=== PATIENT | male | born 1945 | race Caucasian/White ===

== ENCOUNTER 2019-04-09 07:03 | Outpatient (CLI) | payer MEDICARE, BC ==
[2019-04-09 10:24] LABS: ALBUMIN 4.3 g/dL (3.2-5.5); ALBUMIN/GLOBULIN RATIO 1.6 (1.0-2.2); ALKALINE PHOSPHATASE 54 IU/L (42-121); ALT ALANINE AMINOTRANSFERASE 24 IU/L (10-60); AST ASPARTATE AMINOTRANSFERASE 24 IU/L (10-42); BILIRUBIN,TOTAL 1.1 mg/dL (0.2-1.0); BUN - BLOOD UREA NITROGEN 18 mg/dL (6-20); CALCIUM 9.7 mg/dL (8.5-10.3); CARBON DIOXIDE - CO2 26 mmol/L (21-32); CHLORIDE 105 mmol/L (101-111); CHOL/HDL RATIO 2.6 (<5.0); CHOLESTEROL 162 mg/dL; CREATININE 0.7 mg/dL (0.6-1.2); GFR - MDRD 111 (>89); GLUCOSE 105 mg/dL (70-100); HDL CHOLESTEROL 62 mg/dL; LDL CHOLESTEROL,CALCULATED 89 mg/dL; LDL/HDL RATIO 1.4 (<3.6); SODIUM 143 mmol/L (135-145); VLDL CHOLESTEROL 11 mg/dL
== END 2019-04-09 07:04 | disposition home or self-care (01) ==
LOC: LAB.S 07:03
PROVIDERS: ATTEND Internal Medicine
DX: E78.5 Hyperlipidemia, unspecified (principal); N40.1 Benign prostatic hyperplasia with lower urinary tract symptoms
CPT/HCPCS: 36415; 80053; 80061; 83721; 84153

== ENCOUNTER 2020-02-08 09:21 | Outpatient (CLI) | payer MEDICARE, BC ==
--- NOTE | 2020-02-08 10:07 | SLEEP CARE CONSULTATION ---
Information from patient questionnaire entered by Shanelle Hawkins. I have reviewed and concur with the information entered by Shanelle Hawkins. This document represents the service I personally performed and the decisions made by me, Sea Al MD, [facility]. History of Present Illness Service Date and Time: 02/08/2020920 Reason for Visit: New patient, Previously diagnosed sleep apnea (moderate AHI - 21.6), sleep apnea on CPAP therapy Chief Complaint: reports: Other (compliance) Duration of Symptoms: 2 years Usual bedtime: 9 pm Time it takes to fall asleep: 10 min Snores at night: Yes Observed to quit breathing while asleep: Yes Sleeps alone due to snoring: Yes Number of times waking at night: 1-2 Reasons for waking at night: reports: Bathroom Toss, Turn, or Twitch while sleeping: No Recalls having dreams: No Usually gets out of bed at: 6:30 am Sleepy or fatigued during the day: Yes Ever fallen asleep while driving: No Takes day naps: No Dreams during day naps: No Prior sleep studies: Yes Year and Where: 2019 - in [place] Additional HPI information: I had the pleasure of seeing Mr. Honeycutt today regarding obstructive sleep apnea-hypopnea. As you know, he is a 75 year old gentleman who was diagnosed with the sleep-disordered breathing recently in [place] by a home sleep apnea test (HSAT). He did not have a manual CPAP/BiPAP titration study. He was prescribed an autoCPAP set at 4 20 cmH2O (the factory setting). The AHI was 21.6. He uses every night and all night. The > 4 hour compliance rate for the past 30 days is 100%. The residual AHI is 16.2 and average time in large leak per day is 3 hours a night. He wears a Respironics DreamWear full face mask. He gets his supplies from [employer]. He finds the treatment beneficial. - Parasomnia Symptoms Ever been unable to move upon waking from sleep: No Ever felt weak in the knees when startled or emotional: No Bothered by creepy, crawly, restless sensations in legs: No Problems with memory or concentration: Yes CPAP Compliance Data - Data Reviewed with Patient Average duration of nightly device use: 8.9 Compliance rate %: 100 Current pressure setting (cmH2O): 4-20 Humidity settin Heated hose settin Average residual AHI: 16.2 Average large leak: 3 hr 4 sec Subjective Initial [place] Sleepiness Scale score: 3 (in 2019) Past Medical History Past Medical History: reports: Other (cholesterol, enlarged prostate) Social History The patient's occupation is a RE. Patient is and lives in . Have you smoked in the past 12 months: No Years of smokin Quit date: 1972 Alcohol use: Yes Alcohol amount and frequency: 2 daily Caffeine use: Yes Caffeine amount and frequency: 2 coffee in the am Family History Family history of sleep disordered breathing: No Allergies and Home Medications Drug allergies reviewed: Yes Home medication list reviewed: Yes Review of Systems Cardiovascular: denies: high blood pressure, palpitations, chest pain, irregular heart rate or pulse, leg or foot swelling, have to sleep sitting up, other Respiratory: denies: shortness of breath, wheeze, sputum production, chronic cough, other Gastrointestinal: reports: difficulty swallowing Urinary: denies: incontinence, frequency, urgency, impotence, other Neurological: denies: headaches, seizure, head trauma, disorientation, speech dysfunction, gait or balance problems, fainting or unconsciousness, other Ear/Nose/Throat: reports: tonsillectomy, wisdom teeth removed Immunologic: reports: other (dry eye) Physical Exam Vital signs obtained and entered by: Detailed physical exam is deferred because the Coronavirus epidemic. Height: 5 ft 8 in Weight: 175 lb Body Mass Index: 26.6 BMI Classification: Overweight Impression and Plan IMPRESSION: 1. Obstructive Sleep Apnea-Hypopnea Syndrome, moderate, as previously diagnosed. The patient has had good treatment compliance. The current pressure setting appears ineffective but comfortable. The mask does not fit right. A manual CPAP/BiPAP titration study will be ordered to find the optimal pressure setting after the air leak is controlled. He probably will need a different mask. Plan: 1. Schedule a manual CPAP titration study and return in [address] y to discuss result and adjust therapy. 2. Increase the heated humidifier from 4 to 5 for dryness. Visit Type: In Office Time Spent with Patient (minutes): 15 Provider Statement: I spent 100% of the Face to Face Visit with the patient with greater than 50% spent counseling the patient and coordination of care.
== END 2020-02-08 09:22 | disposition home or self-care (01) ==
LOC: SC 09:21
PROVIDERS: ATTEND Internal Medicine Pulmonary Disease
DX: G47.33 Obstructive sleep apnea (adult) (pediatric) (principal); E66.3 Overweight; Z68.26 Body mass index [BMI] 26.0-26.9, adult
CPT/HCPCS: 99203; G0463; 99212

== ENCOUNTER 2021-02-15 15:07 | Outpatient (CLI) | payer MEDICARE, BC ==
--- NOTE | 2021-02-15 15:44 | SLEEP CARE CONSULTATION ---
Information from patient questionnaire entered by Shanelle Hawkins. I have reviewed and concur with the information entered by Shanelle Hawkins. This document represents the service I personally performed and the decisions made by , Marilu Contreras ARNP. History of Present Illness Service Date and Time: 02/15/2021 1507 Previous diagnosis: Moderate, Obstructive Sleep Apnea-Hypopnea Syndrome AHI: 26.1 (in 2019) Reason for follow up: annual (last seen 01/2020) Equipment type: CPAP Equipment obtained from: Other ([employer]; getting supplies as needed) Mask style: Full face Mask brand: Respironics (Dreamwear) Backup mask available: Yes (old mask) Prior sleep studies: Yes Year and Where: 2019 - in [place] Type of Sleep Study: Home sleep study HPI additional information: MELINA JOSÉ was diagnosed to have moderate, AHI 26.1, obstructive sleep apnea-hypopnea syndrome and returned today for CPAP therapy annual follow-up. CPAP Compliance Data - Data Reviewed with Patient Average duration of nightly device use: 6 hr 39 min Compliance rate %: 95.6 (180 days) Current pressure setting (cmH2O): 4-20 (median 8.9, avg 13.8, max 17.0) Humidity settin Heated hose settin Average residual AHI: 13.5 Central apnea: 2.3 Obstructive apnea: 5.9 Hypopnea: 5.4 Average large leak: 17 min 14 sec Subjective Missed days of use due to: reports: travel Patient concerns: reports: mask discomfort, mask leak noise. denies: aerophagia, air blowing in eyes, condensation in mask/hose, nasal congestion, dry mouth, nose, throat, epistaxis, other Observed to snore while using device: No Current pressure setting perceived as: too high On therapy, patient: reports: other (he wakes up 2-3 times and does not feel it is making a difference). denies: sleeping better, awakening more refreshed, being more awake and alert during the day, more rested overall, drowsiness while driving Initial [place] Sleepiness Scale score: 3 (in 2019) Current [place] Sleepiness Scale score: 0 Allergies and Home Medications Home medication list reviewed: Yes (Meloxicam) Review of Systems Review of systems same as previous: Yes (Arthritis) Physical Exam Heart Rate: 74 O2 Saturation: 98 Height: 5 ft 8 in Weight: 174 lb Body Mass Index: 26.4 BMI Classification: Overweight Impression and Plan 1. Obstructive Sleep Apnea-Hypopnea Syndrome, moderate, with good treatment compliance and fair apnea control with elevated residual AHI. On CPAP therapy, the patient has better sleep quality and is more rested overall. Patient feels the pressure is too high and will wake him up in the middle of the night 2 or 3 times. He would like to reduce the pressure to see if he can tolerate it better. Otherwise he might want to stop using the CPAP altogether. The patients pressure will be changed to autoCPAP 4-10 cmH20. Patient advised to contact me if pressure change is uncomfortable so that it can be adjusted. Goals for apnea control discussed. Patient advised also that this may not control his apnea as well and we will need to follow-up with him in 1 to 2 months to see if there is any improvement. He also has some oral dryness and has his humidity setting all the way up to 5. Patient encouraged to make sure he feels his reservoir appropriately every night. He is using a fullface mask and he feels that the air is too high causing the dryness. Patient's apnea severity and rationale for treatment to reduce apnea, improve sleep quality and reduce cardiovascular and cerebrovascular events was reviewed. * Change auto CPAP pressure to 4-10 cmH2O * Notify me if snoring with mask or feeling that the pressure is too much or too little * Attempt to lose weight * Call this office if any problems using CPAP * Return for follow up in 1-2 months, or sooner if concerns arise Counseling Topics: Spare mask, Weight loss health impact Visit Type: In Office Time Spent with Patient (minutes): 24 Provider Statement: I spent 100% of the Face to Face Visit with the patient with greater than 50% spent counseling the patient and coordination of care.
== END 2021-02-15 15:08 | disposition home or self-care (01) ==
LOC: SC 15:07
PROVIDERS: ATTEND Nurse Practitioner Family
DX: G47.33 Obstructive sleep apnea (adult) (pediatric) (principal); E66.3 Overweight; Z68.26 Body mass index [BMI] 26.0-26.9, adult
CPT/HCPCS: 99213; G0463; 99212

== ENCOUNTER 2021-02-24 08:00 | Outpatient (CLI) | payer MEDICARE, BC ==
--- NOTE | 2021-02-24 18:46 | XRAY Report ---
PROCEDURE: Shoulder 3 View RT INDICATIONS: OSTEOARTHRITIS RIGHT SHOULDER TECHNIQUE: 3 views of the shoulder were acquired. COMPARISON: None. FINDINGS: Bones: No fractures or dislocations. No suspicious bony lesions. Visualized ribs appear intact. Soft tissues: No suspicious soft tissue calcifications. IMPRESSION: No evidence acute bony abnormality of the right shoulder. Reviewed by: Eran Chacon MD on 02/24/2021 5:44 PM [place] Approved by: Eran Chacon MD on 02/24/2021 5:44 PM [facility] Station ID: [id number]
--- NOTE | 2021-02-24 18:47 | XRAY Report ---
PROCEDURE: Hand 3 View RT INDICATIONS: OSTEOARTHRITIS RIGHT HAND TECHNIQUE: 3 views of the hand(s) acquired. COMPARISON: None FINDINGS: Bones: No acute fractures or dislocations. Old avulsion fracture of the ulnar styloid. Mild degenera tive change involving the thumb MCP joint, as well as the third, fourth, and fifth MP joints. No keith picious bony lesions. Soft tissues: No suspicious soft tissue calcifications. IMPRESSION: Mild degenerative arthritis of the right. Reviewed by: Eran Chacon MD on 02/24/2021 5:45 PM [place] Approved by: Eran Chacon MD on 02/24/2021 5:45 PM [place] Station ID: [id number]
== END 2021-02-24 23:59 | disposition home or self-care (01) ==
LOC: DI.S 08:00
PROVIDERS: ATTEND Emergency Medicine
DX: M19.041 Primary osteoarthritis, right hand (principal); M19.011 Primary osteoarthritis, right shoulder

== ENCOUNTER 2022-06-06 08:35 | Emergency (ER) | payer MEDICARE, BC ==
--- NOTE | 2022-06-06 10:27 | CT Report ---
PROCEDURE: HEAD WO INDICATIONS: FALL 8FT LADDER, +LOC YESTERDAY TECHNIQUE: Noncontrast 4.5 mm thick angled axial sections acquired from the foramen magnum to the vertex. For r adiation dose reduction, the following was used: automated exposure control, adjustment of mA and/or kV according to patient size. COMPARISON: CT cervical spine 06/06/2022 FINDINGS: Image quality: Excellent. The ventricular system and cortical sulci demonstrate atrophy, consistent for patient's stated age. There are areas of hypodensity in the periventricular and subcortical white matter. There is no acut e intra or extra-axial fluid collection. No acute hemorrhage, mass lesion or midline shift. Brainst em is unremarkable. Globes are symmetrical. Sinuses are aerated. Osseous structures are intact. IMPRESSION: 1. No acute intracranial process. 2. Moderate atrophy and chronic microvascular ischemic changes. Reviewed by: Conchita Douglas MD on 06/06/2022 10:26 AM PDT Approved by: Conchita Douglas MD on 06/06/2022 10:26 AM PDT Station ID: [id number]
--- NOTE | 2022-06-06 10:28 | CT Report ---
PROCEDURE: CERVICAL SPINE WO INDICATIONS: FALL 8FT LADDER, NECK PAIN TECHNIQUE: Noncontrast 3 mm thick sections acquired from the skull base to the T4 level. Sagittal and coronal r eformats were then constructed. For radiation dose reduction, the following was used: automated exp osure control, adjustment of mA and/or kV according to patient size. COMPARISON: CT head 06/06/2022 FINDINGS: Image quality: Excellent. Bones: No fractures or dislocations. Visualized superior ribs are intact. No visualized fracture. Soft tissues: Prevertebral soft tissues are normal in thickness. No paravertebral hematomas. No ap ical pneumothoraces. IMPRESSION: Multilevel degenerative changes otherwise fracture. Reviewed by: Conchita Douglas MD on 06/06/2022 10:27 AM PDT Approved by: Conchita Douglas MD on 06/06/2022 10:27 AM PDT Station ID: [id number]
--- NOTE | 2022-06-06 10:45 | ED Physician Documentation ---
PD HPI HEAD INJURY - Stated complaint Stated Complaint: FALL - Chief complaint Chief Complaint: Trauma Hd/Nk - History obtained from History obtained from: Patient - History of Present Illness Mechanism of head injury: Fell - Additional information Additional information: 77-year-old male presents for evaluation of posterior head pain. Patient states yesterday he was working on a ladder and fell approximately 8 feet. He states that time he hit his head and did lose consciousness. He did not seek emergency care at that time. He does not take blood thinners. Patient also reports an incident 1 week ago where he was trying to get an object off the shelf and a "5 pound container of Saran wrap" fell on his head. He did not lose consciousness at that time. Patient was at his primary care physician's office today because of persistent posterior head pain and general wooziness that he has been feeling since his fall yesterday. He was referred to the emergency department for imaging and treatment. Because the patient was complaining of posterior head and upper neck pain he was placed in a c-collar. Patient states that immediately after the event he felt some tingling in his fingers, however he currently denies any numbness, weakness, tingling in his hands or arms. Review of Systems Ten Systems: 10 systems reviewed and negative Constitutional: denies: Fever, Chills, Myalgias GI: denies: Abdominal Pain, Nausea, Vomiting Neurologic: reports: Headache, Head injury, Other ("woozy, off-balance"). denies: Generalized weakness, Focal weakness, Numbness, Difficulty speaking, Near syncope, Syncope, Seizure, Confused PD PAST MEDICAL HISTORY - Past Medical History Past Medical History: Yes - Allergies Allergies/Adverse Reactions: Allergies Allergy/AdvReac Type Severity Reaction Status Date / Time pseudoephedrine Allergy Unknown Verified 06/06/22 08:49 [From Aishwarya] PD ED PE NORMAL - Vitals Vital signs reviewed: Yes - General General: Alert and oriented X 3, No acute distress, Well developed/nourished - HEENT HEENT: Atraumatic, PERRL, EOMI, Ears normal, Moist mucous membranes - Neck Neck: Other (in [place] Collar) - Cardiac Cardiac: RRR, No murmur, Strong equal pulses - Respiratory Respiratory: No respiratory distress, Clear bilaterally - Abdomen Abdomen: Soft, Non tender, Non distended - Back Back: No CVA TTP, No spinal TTP - Derm Derm: Normal color, Warm and dry, No rash - Extremities Extremities: No deformity, No tenderness to palpate, Normal ROM s pain, No edema, No calf tenderness / cord, Other (5/5 strength upper and lower extremities) - Neuro Neuro: Alert and oriented X 3, freight caller 2-12 intact, No motor deficit, No sensory deficit, Normal speech - Psych Psych: Normal mood, Normal affect Results - Vitals Vitals: Vital Signs - 24 hr 06/06/22 06/06/22 06/06/22 08:40 09:24 10:00 Temperature 37.2 C 36.4 C L Heart Rate 69 59 L 61 Respiratory 18 17 15 Rate Blood Pressure 169/91 H 169/68 H 148/85 H O2 Saturation 99 97 97 06/06/22 10:30 Temperature Heart Rate 61 Respiratory 18 Rate Blood Pressure 145/84 H O2 Saturation 98 Oxygen O2 Source Room air PD MEDICAL DECISION MAKING - ED course Complexity details: reviewed old records, reviewed results, re-evaluated patient, considered differential, d/w patient ED course: Patient presenting for evaluation of head pain after 2 traumatic head injuries within the week. Reports feeling off balanced however he drove himself to the emergency department and is ambulatory without difficulty. Patient has intact strength and sensation in his upper and lower extremities. CT imaging was obtained of the patient's head and C-spine. No acute traumatic injuries were identified and the [place] collar was removed. Patient likely has mild to moderate concussion given his symptoms began after being hit in the head. Patient was counseled to avoid bright lights, loud noises, too much screen time. Counseled to rest at home and to gradually return to strenuous activities. Patient states he will follow-up with his primary care physician. Departure - Departure Disposition: 01 Home, Self Care Clinical Impression: Concussion, Injury of head and neck Condition: Stable Instructions: Concussion Vancleve, ED Head Injury Closed Discharge Date/Time: 06/06/22 10:54
[2022-06-06 10:50] VITALS: BP 145/84
== END 2022-06-06 10:54 | disposition home or self-care (01) ==
LOC: ED 08:35
DX: S06.0X1A Concussion with loss of consciousness of 30 minutes or less, initial encounter (principal); S19.9XXA Unspecified injury of neck, initial encounter; W11.XXXA Fall on and from ladder, initial encounter
CPT/HCPCS: 99282; 99284

== ENCOUNTER 2024-04-13 08:00 | Outpatient (CLI) | payer MEDICARE, BC | END 2024-04-13 23:59 | disposition home or self-care (01) | LOC: LAB.R 08:00 | PROVIDERS: ATTEND Podiatrist | DX: L03.031 Cellulitis of right toe (principal) | CPT/HCPCS: 87070; 87205 ==